=== PATIENT | female | born 1945 | race Caucasian/White ===

== ENCOUNTER 2022-08-28 17:35 | Emergency (ER) | payer OTHER, MEDICARE ==
[~2022-08-28] VITALS: Ht 165.1 cm; Wt 72.6 kg
[2022-08-28] MEDS ORDERED: TOUJEO SOL300 UNIT/1 (20:04)
[2022-08-28] MEDS ORDERED: [UNRECOGNIZED DRUG - OTHER] PO (20:05)
[2022-08-28] MEDS ORDERED: CITALOPRAM HBR20 MG PO (20:05)
[2022-08-28] MEDS ORDERED: METFORMIN HCL1000 M1 PO (20:05)
[2022-08-28] MEDS ORDERED: MOVE FREE ULTR1 EAC2 PO (20:06)
== END 2022-08-28 22:30 | disposition home or self-care (01) ==
LOC: ED 17:35
DX: S01.81XA Laceration without foreign body of other part of head, initial encounter (principal); S60.222A Contusion of left hand, initial encounter; S20.212A Contusion of left front wall of thorax, initial encounter; E11.9 Type 2 diabetes mellitus without complications; W22.8XXA Striking against or struck by other objects, initial encounter; Z79.899 Other long term (current) drug therapy; Z79.4 Long term (current) use of insulin; Z79.84 Long term (current) use of oral hypoglycemic drugs; Z23 Encounter for immunization
CPT/HCPCS: 12013; 70450; 71250; 73130; 90471; 90715; 99283-25